=== PATIENT | male | born 1980 | race Asian ===

== ENCOUNTER 2016-09-16 10:14 | Emergency (ER) | payer MEDICAID ==
[~2016-09-16] VITALS: Ht 172.7 cm; Wt 83.4 kg
[2016-09-16 11:22] VITALS: BP 135/84
== END 2016-09-16 11:24 | disposition home or self-care (01) ==
LOC: ED 11:11
DX: S16.1XXA Strain of muscle, fascia and tendon at neck level, initial encounter (principal); G89.29 Other chronic pain; X50.9XXA Other and unspecified overexertion or strenuous movements or postures, initial encounter; Y93.89 Activity, other specified; Y92.89 Other specified places as the place of occurrence of the external cause; Y99.8 Other external cause status
CPT/HCPCS: 99283